=== PATIENT | male | born 1960 | race Caucasian/White ===

== ENCOUNTER 2022-05-03 09:16 | Emergency (ER) | payer MEDICARE, OTHER ==
[~2022-05-03] VITALS: Ht 152.4 cm; Wt 64.5 kg
[2022-05-03] MEDS ORDERED: HYDROCODON-ACE1 EA10 PO (15:19)
[2022-05-03] MEDS ORDERED: ONDANSETRON ODT8 MG PO (15:19)
== END 2022-05-03 16:00 | disposition home or self-care (01) ==
LOC: ED 09:16 → EDSEX 09:17 → ED 09:17
DX: R10.10 Upper abdominal pain, unspecified (principal); B20 Human immunodeficiency virus [HIV] disease
CPT/HCPCS: 36415; 71045; 74177; 80053; 81001; 83690; 85025; 96361; 96375; 99284-25; J1170; J1885; J2405; J7030; Q9967

== ENCOUNTER 2022-05-05 10:33 | Emergency (ER) | payer MEDICARE, OTHER ==
[~2022-05-05] VITALS: Ht 170.2 cm; Wt 65.4 kg
[~2022-05-05 10:33] MED LIST: HYDROCODON-ACE1 EA10 PO; ONDANSETRON ODT8 MG PO
--- OUTSIDE RECORDS SUMMARY | 2022-05-05 10:40 | XMS ---
PreManage Notification: MANUEL HO Security Emergency Technician Events No recent Security Events currently on file CRITERIA MET - [facility] - 2 Visits in 30 Days CARE PROVIDERS MARI GIBSON Physician Medical Detailist: Medical Current PHONE: Unknown Shila has no Care Guidelines for this patient. E.Rolando VISIT COUNT (12 MO.) 2 [facility] TOTAL 2 NOTE: Visits indicate total known visits. ED/UCC VISIT TRACKING (12 MO.) 05/05/2022 10:34 [facility] [place] TYPE: Emergency COMPLAINT: - R FLANK PAIN 05/03/2022 09:17 [facility] TYPE: Emergency COMPLAINT: - R FLANK PAIN, ABD PAIN, BACK PAIN INPATIENT VISIT TRACKING (12 MO.) No inpatient visits to display in this time frame [email or web address]
[2022-05-05] MEDS ORDERED: BIKTARVY 50-201 EACH PO (13:41)
[2022-05-05] MEDS ORDERED: HYDROCODON-ACE1 EA11 PO (13:41)
== END 2022-05-05 14:00 | disposition home or self-care (01) ==
LOC: ED 10:33
DX: R10.9 Unspecified abdominal pain (principal); B20 Human immunodeficiency virus [HIV] disease
CPT/HCPCS: 36415; 80053; 81001; 83690; 85025; 96374; 96375; 99284-25; J1170; J1885; J2405; J7030

== ENCOUNTER 2022-05-19 09:43 | Inpatient (IN) | payer MEDICARE, OTHER ==
[~2022-05-19] VITALS: Ht 167.6 cm; Wt 65.5 kg
[~2022-05-19 09:43] MED LIST changes: +BIKTARVY 50-201 EACH PO; +HYDROCODON-ACE1 EA11 PO; +PERCOCET 7.5-31 EACH PO
--- OUTSIDE RECORDS SUMMARY | 2022-05-19 09:46 | XMS ---
PreManage Notification: MANUEL HO Security Resawyer Events No recent Security Events currently on file CRITERIA MET - [facility] - 2 Visits in 30 Days CARE PROVIDERS MARI GIBSON Physician Director Of Science: Medical Current PHONE: Unknown Shila has no Care Guidelines for this patient. EMorena VISIT COUNT (12 MO.) 4 [facility] TOTAL 4 NOTE: Visits indicate total known visits. ED/C VISIT TRACKING (12 MO.) 05/19/2022 09:44 [facility] TYPE: Emergency COMPLAINT: - ABD/FLANK PAIN 05/09/2022 08:42 [facility] TYPE: Emergency COMPLAINT: - ABD PAIN,INCREASED BLOOD PRESSURE DIAGNOSES: - Localized enlarged lymph nodes - Right upper quadrant abdominal tenderness - Epigastric pain 05/05/2022 10:34 [facility] TYPE: Emergency COMPLAINT: - R FLANK PAIN DIAGNOSES: - Unspecified abdominal pain 05/03/2022 09:17 [facility] TYPE: Emergency COMPLAINT: - R FLANK PAIN, ABD PAIN, BACK PAIN DIAGNOSES: - Upper abdominal pain, unspecified INPATIENT VISIT TRACKING (12 MO.) No inpatient visits to display in this time frame [email or web address]
--- NOTE | 2022-05-19 13:10 | NUR ---
PT TO ROOM VIA STRETCHER, STANDBY ASSIST TO BED, PT APPEARS WEAK WITH AMBULATION, DENIES DIZZINESS. RED, UNOPEN RASH NOTED TO LEFT UPPER ABD AND LEFT MID BACK. PT ORIENTED TO ROOM, CALL LIGHT.
--- NOTE | 2022-05-19 13:28 | NUR ---
PT C/O 3/10 PAIN IN THE AREA OF HIS RASH ON LEFT UPPER ABD, PRN OXYCODONE GIVEN.
--- NOTE | 2022-05-19 15:59 | NUR ---
PT SITTING UP IN CHAIR, CHAIR ALARM IN PLACE. IMPULSIVE. RE-ORIENTED TO CALL LIGHT. PT VERBALIZED UNDERSTANDING. DENIES FURTHER NEEDS AT THIS TIME. CALL LIGHT IN REACH.
--- NOTE | 2022-05-19 16:00 | NUR ---
PT BED ALARM RANG, PT WAS UP AND OUT OF BED WANTING TO GO TO THE CHAIR. PT IS UNSTEADY & WEAK ON FEET. GOT PT IN CHAIR, FEET ELEVATED, CHAIR ALARM PLACED UNDER HIM AND GIVEN A BLANKET. PT HAS CALL LIGHT NEXT TO HIM.
--- NOTE | 2022-05-19 16:03 | NUR ---
REPORT RECEIVED FROM GAGE WRIGHT. THIS RN ASSUMING CARE OF PT. PT UP TO CHAIR. PT HAS THE HICCUPS. PT DECLINES INTERVENTIONS FOR HICCUPS. PT REPORTS 3/10 PAIN IN ABDOMEN AND FLANK. PT REQUESTS ADDITIONAL PAIN MEDICATION. SEE MAR FOR MEDICATION GIVEN. PT TALKS WITH FRIEND ON THE PHONE. APPEARS DISSCONNECTED TO EVENTS HAPPENING ARROUND HIM, FOR EXAMPLE. PT SETS PHONE DOWN AND FORGETS THAT HE WAS TALKING TO HIS FRIEND. FRIEND REMAINS ON THE LINE. PT FORGETS ABOUT ITEMS HE HAS ASKED FOR. CHARGE NURSE NOTIFIED, PT MOVED TO ROOM CLOSER TO THE NURSES STATION FOR SAFETY. PT REMAINS UP TO CHAIR. CHAIR ALARM ON. WARM BLANKETS PROVIDED. CALL LIGHT WITHIN REACH.
--- NOTE | 2022-05-19 16:54 | NUR ---
PT ASSESSMENT: PT REMAINS UP TO CHAIR. PT REPORTS 3/10 PAIN AND REQUESTS ADDITIONAL PAIN MEDICATION. PT ADVISED THAT NEXT ORAL OXYCODONE IS DUE IN 30 MINUTES, PT STATES HE WOULD LIKE TO WAIT UNTIL THAT TIME TO TAKE PAIN MEDICATION. SEE MAR FOR MEDICATION GIVEN. PT VERY LETHARGIC, MOVING MINMALLY. PT OREINTED TO ALL BUT DATE AND EVENTS. PT STATES IT IS "AUGUST" AND THAT HE IS AT THE HOSPITAL FOR "PAIN" PT UNABLE TO RECALL CONVERSATIONS WITH DOCTORS TODAY. PT FLINCHES WITH LIGHT FROM OUTSIDE. HICCUPS HAVE RESOLVED. LUNG SOUNDS CLEAR. HEART TONES REGULAR. BOWEL TONES ACTIVE. PT CONTINUES TO REPORT POOR APPITITE. PT IMPULSIVE AT TIMES AND UNSTEADY ON FEET. REDDENED RASH WITH BLISTES NOTED ON LEFT UPPER ABDOMEN AND BACK/FANK. NO OOZINE OR LEAKING NOTED. CHAIR ALARM ON FOR SAFETY. NO ADDITIONAL REQUESTS OR COMPLAINTS. CALL LIGHT WITHIN REACH.
--- NOTE | 2022-05-19 16:56 | NUR ---
PT DID USE CALL LIGHT FOR ASSISTANCE FOR THE BATHROOM. i ADVISED HIM TO USE THE URINAL INSTEAD BECAUSE HE WAS NOT STEADY ON HIS FEET. PT AGREED & TOOK THE URINAL BUT HE TRIED TO WALK TOWARDS THE BATHROOM & I HAD TO TELL HIM TO STAND STILL AND USE THE URINAL, HE SAID "OK" IF HE UNDERSTOOD BUT HE THEN TRIED TO WALK TOWARDS THE BATHROOM AGAIN. I INSTEAD BROUGHT OUT THE COMMODE AND ASKED HIM TO MAKE SURE HE PULLS HIS PANTS DOWN BUT HE SAT WITH HIS PANTS ON, i TOLD HIM AGAIN TO REMOVE HIS PANTS AND HE STOOD AND THEN SAT AGAIN WITH HIS BOTTOMS ON. THE THRID TIME INSTRUCTING HIM HE THEN REMOVED HIS BOTTOMS AND SAT ON THE COMMODE, HOWEVER WHEN HE WAS DONE HE SAID HE FELT BETTER BUT HE DID NOT HAVE A VOID. PT THEN GOT BACK INTO CHAIR WITH LEGS ELEVATED AND CHAIR ALARM ON AND URINAL NEXT TO HIM. CALL LIGHT IS ATTATCHED TO BLANKET ON HIS LAP.
--- NOTE | 2022-05-19 17:10 | NUR ---
PT ARRIVED THIS SHIFT FOR IRAIS. PT UP WITH 1 PERSON STAND BY ASSIST, PT IMPULSIVE AND CONFUSED AT TIMES. PT TOLERATING REGULAR DIET, MINMAL INTAKE. IV FLUIDS FOR HYDRATION. PT REPORTS 2-3/10 PAIN IN LEFT FLANK AND ABDOMEN, SHINGLES RASH PRESENT WITH CLOSED LESIONS. PRN PAIN MEDICATION GIVEN. PT INCONSISTANTLY ORIENTED THOUGHOUT SHIFT, MOVED CLOSER TO NURSES STATION FOR SAFETY. PT VOIDING QUANTITY SUFFICENT, ALTHOUGH UNMEASURED. PT DOES NOT USE CALL LIGHT CONSISTANTLY. BED/CHAIR ALARM FOR SAFETY.
[2022-05-19] MEDS ORDERED: PERCOCET 7.5-31 EACH PO (17:17)
--- NOTE | 2022-05-19 17:24 | NUR ---
PAIN MEDICAITON DUE/GIVEN. PT REPORTS 3/10 PAIN IN LEFT ABDOMEN/FLANK. DINNER DELIVERED TO PT. PT REJECT DINNER. ENSURE OFFERED. PT AGREES TO TRY ENSURE. STRAWBERRY ENSURE MILKSHAKE PROVIDED. PT DENIES ADDITIONAL REQUESTS OR COMPLAINTS. CALL LIGHT WITHIN REACH. CHAIR ALARM ON.
--- NOTE | 2022-05-19 18:02 | NUR ---
PT CALL LIGHT ON. PT BACK IN BED AND REQUESTS TO GET UP TO CHAIR. STAND BY ASSIST UP TO CHAIR. PT CONTINUES TO REPORT 3/10 PAIN IN ABDOMENT. WARM BLANKETS AND HEAT PACK PROVIDED, PT STATE "OH THAT FEELS BETTER." PT DENIES ADDITIONAL REQUESTS OR COMPLAINTS. CALL LIGHT WITHIN REACH. CHAIR ALARM ON. PT TAKING SMALL SIPS ON STRAWBERRY ENSURE MILKSHAKE.
--- NOTE | 2022-05-19 18:38 | NUR ---
THIS RN TO ROOM TO CHECK ON PT. PT REMAINS UP TO CHAIR. NEW IV FLUID BAG HUNG. PT REPORTS 3/10 ONGOING PAIN IN ABDOMEN. PT DENIES NEED FOR ADDITONAL PAIN INTERVENTIONS AT THIS TIME. PT CONTINUES TO USE HEAT PACK TO ABDOMEN. PT RPEORS HE JUST RECENTLY MOVED TO [facility] FROM [place] "BECAUSE OF THE CRIME." PT RPEORTS HE HAD "BEEN GETTING MOTEL ROOMS FROM [facility]" PT UNABLE (OR UNWILLING?) TO ELABORATE ANY MORE REGARDING LIVING SITUATION AND IF NEEDS ARE MET. NO ADDITONAL REQUESTS OR COMPLAINTS AT THIS TIME. CALL LIGHT WITHIN REACH.
--- NOTE | 2022-05-19 19:32 | NUR ---
REPORT RECEIVED FROM CHELI ALMONTE. PT IS CONFUSED TO TIME, PLACE AND SITUATION. ORIENTED TO SELF ONLY. BED ALARM IS ON. CALL LIGHT IN REACH.
--- NOTE | 2022-05-19 20:42 | NUR ---
IN TO ASSIST PT WITH TOILETING, SBA-1PA FWW, BACK TO BED, ALARM IS SET, PT ASKING ABOUT GETTING A PAIN PILL, RN INFORMED, NO FURTHER NEEDS AT THIS TIME
--- NOTE | 2022-05-19 21:55 | NUR ---
Patient continually attempting to escape bed. Claims sitting up helps abd pain. Bed alarm in place. Patient very forgetful. No complaints other than abd pain.
--- NOTE | 2022-05-20 00:30 | NUR ---
PT GETTING UP TO THE TOILET, SBA-1PA WITH IV POLE
--- NOTE | 2022-05-20 01:56 | NUR ---
Patient in bed. Restless. Will sleep for about ten minutes at a time before waking and setting off bed alarm. In bed sleeping at this time. Bed alarm in place.
--- NOTE | 2022-05-20 04:10 | NUR ---
PT CALLEDS, ASSISTG ED WITH TOILETING, BACK TO BED, NO FURTHER NEEDS, BED ALARM SET
--- NOTE | 2022-05-20 04:39 | NUR ---
Patient has had very little sleep throughout shift. Constantly getting up and setting off bed alarm. Oriented to self only. Does not use call light. Very forgetful. Easily redirected. Lung sounds clear bilat. On RA. Respirs even, unlabored. Infusing fluids at rate of 200. Voiding appropriately. Heart sounds regular. Bowel sounds active. Rash on LUQ and back are scabbed over. Patient complains of pain at these sites despite pain medications. Patient continuously repositions self. Bed alarm remains in place. Call light within reach.
--- NOTE | 2022-05-20 05:15 | NUR ---
PT CALLED, ASSISTED TO TOILET, BACK TO BED, VS DONE, LAB ENTERS RM, BED ALARM IS IN PLACE
--- NOTE | 2022-05-20 05:53 | NUR ---
call received from Dedra sheridan and reported critical calcium of 13.1. result trending down, md not notified as calcium trending in correct direction. primary rn kimmie made aware.
--- NOTE | 2022-05-20 07:04 | NUR ---
REPORT RECEIVED FROM GAGE SALAS. PT RESTING IN BED WITH EYES CLOSED, HEAD OF BED ELEVATED TO 30 DEGREES. RESPIRATIONS EVEN AND UNLABORED. BED RAILS UP. CALL LIGHT WITHIN REACH. PT ALLOWED TO REST.
--- NOTE | 2022-05-20 08:15 | NUR ---
PATIENT UP IN CHAIR. AM CARE COMPLETED. CHAIR ALARM ON. NO OTHER NEEDS AT THIS TIME CALL LIGHT WITHIN REACH.
--- NOTE | 2022-05-20 08:25 | NUR ---
MORNING ASSESSMETN AND MEDICATION DUE. PT UP TO CHAIR, RESTING WITH EYES CLOSED, RESPIRATIONS EVEN AND UNLABORED, RR OF 16. PT AWAKENS TO VOICE. PT REPORTS 2/10 PAIN IN BILATERAL FLANKS AND LEFT ABDOMEN. PT TENDER TO TOUCH ON LEFT FLANK. PT REQUESTS PAIN MEDICATION. SEE MAR FOR MEDICATION GIVEN. PT ORIENTED TO ALL AT THIS TIME, OCCATIONALLY FORGETFUL. PT REPORTS NUMBNESS IN FEET THIS MORNING. PT REPORTS FEET HAVE BEEN NUMB "FOR A WHILE." LUNG SOUNDS CLEAR. HEART TONES REGULAR. BOWEL TONES HYPOACTIVE. UNKNOWN LAST BOWEL MOVEMENT. BOWEL MEDICATIONS ORDERED GIVEN PTS USE OF PAIN MEDICATIONS. PTS POOR APPITITE CONTINUES. SHINGLES RASH UNCHANGED. PT DECLIENS BREAKFAST. ENSURE PROVIDED. PT CONTINUES RESTING IN CHAIR. NO ADDITIONAL REQUESTS OR COMPLAINTS. WARM BLANKETS PROVIDED. CALL LIGHT WITHIN REACH. CHAIR ALARM ON.
--- NOTE | 2022-05-20 09:42 | NUR ---
THIS RN TO ROOM TO CHECK ON PT. PT VISITING WITH CASE MANAGMENT. PT REPORTS 2/10 PAIN IN LEFT FLANK AND LEFT ABDOMEN. PT DECLINES ENSURE OR OTHER BREAKFAST FOODS/DRINKS. PT REPORTS MILD NAUSEA, SEE MAR FOR MEDICATION GIVEN. NO ADDITONAL NEEDS AT THIS TIME. PT REMAINS UP TO CHAIR. CALL LIGHT WITHIN REACH. CHAIR ALARM ON.
--- NOTE | 2022-05-20 10:17 | NUR ---
PATIENT UP IN CHAIR AFTER MEAL. VITALS AND I/O'S COMPLETED. CALL LIGHT WITHIN REACH.
--- NOTE | 2022-05-20 10:30 | NUR ---
Spoke with pt and he is intermittently confused. Stating he is at a motel. We discussed he is currently in the hospital and he states, "oh thats right". He is then able to tell me he currently is working with [employer] and they are paying for he and his SO to stay in a motel as they are homeless. [place], he does not use any DME. He states he is disabled, but is unsure why. He gets SSI. Pt states he has been very painful for the last 2weeks. He again has some confusion while talking. He does states his SO is Edgardo. Pt wants to return to the motel on [place]. He will need a care ride.
--- NOTE | 2022-05-20 10:59 | NUR ---
HOURLY ROUNDING: THIS RN TO ROOM TO CHECK ON PT. PT REMAINS UP TO CHAIR. TALKING ON THE PHONE. PT REPORTS PAIN IS "ALL RIGHT." REPORTS NAUSEA CONTINUES. PT NOW HAS HICCUPS. pT DECLINES COOL CLOTH, ICE OR HEAT PACK. PT REPORTS HE HAS NO REQUESTS AT THIS TIME. CALL LIGHT WITHIN REACH. CHAIR ALARM ON.
--- NOTE | 2022-05-20 11:45 | NUR ---
This rn to room WITH DR. VASQUES FOR ROUNDS. PT REMAINS UP TO CHAIR. PT UPDATED ON PLAN OF CARE. ASSESSMENT, PAIN AND PT CONTIDITION REVIEWED WITH DR. VASQUES. NEW ORDERS PLACED. NO ADDITIONAL NEEDS AT THIS TIME. PT REMAINS UP TO CHAIR. CALL LIGHT WIHTIN REACH. CHAIR ALARM ON.
--- NOTE | 2022-05-20 11:56 | NUR ---
NEW ORDERS FROM MD. PT REMAINS UP TO CHAIR. PT DECLINES LUNCH WHEN IT IS DELIVERED. STRAWBERRY ENSURE PROVIDED INSTEADY. PT AGREES TO TRY SOME JELLOW WELL. MEDICATIONS GIVEN. PT DENEIS SORE THROAT. PT CONTINUES TO REPORT ABDOMINAL PAIN AND PAIN IN FLANK AREAS AT /10. PT CONTINUES TO REPORT NASUEA. PT UNABLE TO CLARIFY IF PAIN OR NAUSEA IS WORSE. PT STATES "I THOUGHT THEY WERE ONE AND THE SAME." MD AWARE OF COMPLAINTS. NO ADDITIONAL NEEDS AT THIS TIME. CALL LIGHT WITHIN REACH. CHAIR ALARM ON.
--- NOTE | 2022-05-20 12:11 | NUR ---
DR. VASQUES UPDATED REGARDING PTS NASUEA/PAIN. NEW MEDICATIONS ORDERED, SEE MAR FOR MEDICATION GIVEN. NO ADDITIONAL NEEDS. CALL LIGHT WITHIN REACH. CHAIR ALARM ON.
--- NOTE | 2022-05-20 12:19 | NUR ---
IMAGING TO ROOM TO CASH APPLICATIONS SPECIALIST PT. PT SALINE LOCKED FOR TRANSFER TO IMAGING DEPARTMENT. PT TRANSFERES SELF TO WHEECHAIR WITH 1 PERSON ASSIST. NO ADDITIONAL NEEDS.
--- NOTE | 2022-05-20 13:01 | NUR ---
PT RETURNED FROM IMAGING. PT TRANSFERS SELF TO CHAIR WITH 1 PERSON ASSIST. PT REPORTS NAUSEA IS IMPROVING. PT DENIES NEED FOR ADDITIONAL MEDICATINO AT THIS TIME. NEW IV FLUIDS HUNG. PT EDUCATION DONE REGARDING MEAUSREING VOIDS. URINAL AT BEDSIDE, HAT IN TOILET. PT RESTING IN CHAIR WITH EYES CLOSED. NO ADDITIONAL REQUESTS OR COMPLAINTS. CALL LIGHT WITHIN REACH. CHAIR ALARM ON.
--- NOTE | 2022-05-20 13:15 | NUR ---
PT RETURNED FROM IMAGING. PT UP TO RESTROOM WITH 1 PERSON ASSIST FROM LATHE SCALPER OPERATOR TO VOID AND THEN UP TO CHAIR. PT REPORTS HUNGER, LUNCH PROVIDED. PT DENIES ADDITIONAL REQUESTS OR COMPLAINTS. PT REMAINS AT 90-96% ON 4L O2 BY NC. NO ADDITIONAL NEEDS AT THIS TIME. CALL LIGHT WITHIN REACH.
--- NOTE | 2022-05-20 13:47 | NUR ---
PATIENT IN CHAIR AFTER USING RESTROOM. VITALS AND I/O'S COMPLETED. CHAIR ALARM ON. NO OTHER NEEDS AT THIS TIME, CALL LIGHT WITHIN REACH.
--- NOTE | 2022-05-20 13:51 | NUR ---
AFTERNOON ASSESSMENT DUE. PT REMAINS UP TO CHAIR. PT ASKED IF HIS NAUSEA HAS IMPROVED AND PT STATES "WELL, I DONT' KNOW. NOONE HAS COME TO CHECK ON IT." WHEN ASKED IF HE FEELS SICK TO HIS STOMACH, PT STATES "ONLY A LITTLE BIT." PT REPORST 3/10 PAIN IN LEFT ABDOMEN AND LEFT FLANK. BOTH AREAS TENDER TO TOUCH. PT DENIES NEED FOR MEDICATION AT THIS TIME. PT ORIENTED TO SELF AND PLACE BUT DISORINTED TO DATE AND SITUATION. 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 PT BEGINS DRINKING APPLE JUCIE AND GETS HICCUPS AGAIN. PT DECLIENS OFFERS OF OTHER FOOD AND FLUID. 1 PERSON ASSIST UP TO RESTROOM. PT IMPUSLIVE AND GRABING ON TO ITEMS (INCLUDING SHOWER CURTAIN) TO HOLD ON TO. WALKER IN USE BUT PT DOES NOT SEEM TO UNDERSTAND FUCNTION OF WALKER. PT VOIDS 200ML CLEAR YELLOW URINE. DEPENDS WET, CHANGED, SHAWNA CARE DONE. 1 PERSON ASSIST BACK TO CHAIR. LUNG SOUNDS CLEAR. OCCATONAL NONPRODUCTIVE COUGH HEARD. PT TOELRATING ROOM AIR WITH OXGYEN SATUATIONS ABOVE 94%. HEAR TONES REGULAR. BOWEL TONES COTINUES TO BE HYPOACTIVE. SHINGLES RASH UNCHANGED. BRUISE NOTED TO LEFT AC, LARGE IN SIZE, LIKELY FROM RECENT LAB DRAW. PT REMAINS UP TO CHAIR. PT DENIES ADDITONAL REQUESTS OR COMPLAINTS. CALL LIGHT WIcoRankIN REACH. CHAIR ALARM ON.
--- NOTE | 2022-05-20 14:00 | NUR ---
Rehana from [facility] stopped by my office to check in. She has been in to see Saray. Discussed needs, they will be closed for the holiday weekend. She states pt does not have funds for rx, if he dcs over the weekend. Let her know I will notify the Dr. At this time, I am unsure when pt will dc. They will be back in the office on Monday. They will pay for pts meds it he has new medication on discharge.
--- NOTE | 2022-05-20 14:33 | NUR ---
PTS SIGNIFICANT OTHER AND SYSTEM TRAINER ARRIVED TO VISIT WITH PT. PT STATES TO UPDATE BOTH OF THESE INDIVIDUALS ON HIS STATUS AND PLAN OF CARE. UPDATES GIVEN. PTS SIGNIFICANT OTHER CONCERNED ABOUT PT NOT EATING, REPORTS PT WAS NOT EATING AT HOME EITHER. PT REPORTS "IT'S PSYCOLOGICAL." PT ASKED TO CLARIFY AND STATES "THE FOOD MIGHT BE CONTAMINATED." PTS SIGNIFICANT OTHER ASKED TO BRAINSTORM WITH PT FOODS HE MIGHT BE WILLING TO EAT OR HAVE DELIVERED FROM OUTSIDE THE HOSTPITAL THAT HE WOULD FEEL WOUD BE SAFE FOR HIM. PT REPORTS "i DON'T THINK THERE IS ANYTHING." PTS SIGNIFICANT OTHER AND SYSTEM TRAINER VERBALIZE UNDERSTANDING OF PLAN OF CARE AND STATE THEIR QUESITONS HAVE BEEN ANSWERED. PT ASSISTED WITH REPOSITIONING IN CHAIR. NO ADDITIONAL REQUESTS OR COMPLAINTS. CALL LIGHT Tu[place]ool REACH. CHAIR ALARM ON.
--- NOTE | 2022-05-20 14:58 | NUR ---
Admin Oxycodone 5mg po and tylenol 500mg po for reports of 5/10 abdominal pain.
--- NOTE | 2022-05-20 15:00 | NUR ---
Texted Dr. Blount and updated. He does not feel pt will dc before Monday.
--- NOTE | 2022-05-20 15:45 | NUR ---
HOURLY ROUNDING: THIS RN TO ROOM TO CHECK ON PT. PT REMAINS UP TO CHAIR. RESTING WITH EYES CLOSED, RESPRIATIONS EVEN AND UNLABORED, RR OF 16. CALL LIGHT WITHIN REACH. CHAIR ALARM ON. PT ALLOWED TO REST.
--- NOTE | 2022-05-20 16:40 | NUR ---
AFTERNOON MEDICATION DUE. THIS RN TO ROOM. PT RESTING IN CHAIR WITH EYES CLOSED, SLOUCHED OVER IN CHAIR. PT AWAKENS TO VOICE AND TOUCH. PT UNABLE TO RATE PAIN STATES "I DONT' KNOW" WHEN ASKED ABOUT PAIN. PT CONFIRMS THAT HE HAS PAIN BUT IS NOT ABLE TO GIVEN A NUMBER ON THE 0-10 SCALE. FLACC SCORE OF 2/10 FOR REPORT OF PAIN AND CONSOLABILITY. PT DENIES NAUSEA. PT IS WILLING TO TRY ONE BITE OF JELLO BUT OTHER VENCES CONTINEUS TO REJECT FOOD. MEDICAITON GIVEN (SEE MAR). SWALLOWS PILLS AND WATER WITHOUT ISSUE. NO ADDITIONAL REQUESTS OR COMPLAINTS. CALL LIGHT WITHIN REACH. CHAIR ALARM ON.
--- NOTE | 2022-05-20 17:15 | NUR ---
THIS RN TO ROOM TO DELIVER DINNER. PT RESTING IN CHAIR WITH EYES CLOSED. DINNER AT BEDSIDE. PT ALLOWED TO REST. CALL LIGHT WITHIN REACH. CHAIR ALARM ON.
--- NOTE | 2022-05-20 17:26 | NUR ---
PT HERE FOR IRAIS. PT UP TO CHAIR AND RESTROOM WITH 1 PERSON ASSIST AND FWW THIS SHIFT. PT REMAINS IN CHAIR FOR MUCH OF SHIFT. REGULAR DIET MEALS AND ENSURE PROVIDED, PT EATING ONLY A FEW BITES THOUGHOUT SHIFT. PT CONTINUES TO BE INCONSISTANTLY OREINTED AND MAKING COMMENTS THAT ARE OUT OF PLACE THIS SHIFT. HEAD CT PERFORMED. HEART TONES REGULAR. LUNG SOUNDS REMAIN CLEAR ALTHOUGH NON PRODUCTIVE COUGH NOTED THIS SHIFT. SHINGLES RASH UNCHANGED. PT CONTINUES TO HAVE LEFT SIDED ABDOMINAL AND FLANK PAIN, TENDER TO TOUCH. PRN PAIN MEDICATIONS GIVEN. IV FLUIDS CONTINUE. PT VOIDING QUANTITY SUFFICIENT. PT DOES NOT USE CALL LIGHT CONSISTANTLY. CHAIR/BED ALARM FOR SAFETY.
--- NOTE | 2022-05-20 18:32 | NUR ---
CHAIR ALARM SOUNDING. PT UP IN ROOM, WONDERING. PT REPORTS HE NEEDS TO USE THE RESTROOM. PT GUIDED TO RESTROOM WITH ONE PERSON ASSIST AN FRONT WHEEL WALKER. DEPENDS SATURATED. NO ADDITIONAL URINE VOIDED. SHAWNA CARE DONE. DEPENDS CHANGED. REDNESS NOTED TO GLUTEA AREA, BARRIER CREAM APPLIED. 1 PERSON ASSIST BACK TO BED, PT HAS TROUBLE FINDING THE BED AND NEEDS FREQUENT REDIRECTION. PT ASSISTED INTO BED. HEAD OF BED ELEVATED TO 32 DEGREES. PT DECLINES DINNER, SOUP, ENSURE AND OTEHR ITEMS OFFERED. NEW IV FLUID BAG HUNG. PT DENIES ADDITIONAL REQUESTS OR COMPLAINTS. CALL LIGHT WITHIN REACH. BED RAILS UP. BED ALARM ON.
--- NOTE | 2022-05-20 20:00 | NUR ---
Patient sleeping in bed. Bed alarm in place. Call light within reach.
--- NOTE | 2022-05-20 21:00 | NUR ---
BED ALARM GOING OFF, pt UP SBA WITH FWW. SOMEWHAT UNSTEADY ON FEET AND CAN BE IMPULSIVE. pt VOIDED APPROX 300MLS AND BACK IN BED WITH BED ALARM ON FOR SAFETY. pt IN VIEW OF RN STATION AND CALL LIGHT IN REACH.
--- NOTE | 2022-05-20 22:10 | NUR ---
IN TO ASSIST PT TO THE TOILET, SBA WITH IV POLE, BACK TO BED, NO FURTHER NEEDS AT THIS TIME
--- NOTE | 2022-05-20 22:54 | NUR ---
CALL LIGHT ANSWERED, pt VERBALIZES NEED TO VOID. pt WAITED FOR CLINICAL RESEARCH DIRECTOR TO ENTER ROOM, SBA WITH FWW TO BATHROOM. REMAINS SOMEWHAT UNSTEADY AND REQUIRES PROMPTING AT TIMES. pt INCONTINENT OF URINE, CLEAN ATTENDS IN PLACE AND pt BACK IN BED AND BED ALARM ON. pt PRAISED FOR USING CALL LIGHT, NO FURTHER NEEDS. CALL LIGHT IN REACH.
--- NOTE | 2022-05-20 23:33 | NUR ---
PT USED HIS CALL LIGHT TO ASK FOR THE BATHROOM. ASSISTED UP TOT HE BATHRROM, SBA AND FWW. PT VOIDED AND WAS INCONTINENT OF URINE. CHANGED BRIEF. BACK TO BED. BED ALARM IS ON.
--- NOTE | 2022-05-21 02:10 | NUR ---
PT SET OFF BED ALARM GETTING UP TO THE BATHROOM. HE WAS INCONTINENT OF URINE. BRIEF WAS CHANGED. ASSISTED BACK TO BED.
--- NOTE | 2022-05-21 02:30 | NUR ---
Patient sleeping in bed. Egg crate on mattress. Bed alarm in place. Call light within reach.
--- NOTE | 2022-05-21 04:15 | NUR ---
IN ASSIST PT TO THE TOILET, BACK TO BED, NO FURTHER NEEDS AT THIS TIME
--- NOTE | 2022-05-21 04:49 | NUR ---
Uneventful shift. Patient has gotten much more rest this shift. Has slept majority of shift. Pain adequately controlled w/PRN oxycodone and tylenol. Still very confused. Occasionally uses call light, but mostly jumps to side of bed. Lung sounds clear. Respirs even, unlabored. HR sounds reg. Infusing fluids at rate of 200. Bowel sounds hypo. Has not eaten over shift. Small amount of fluid intake. Has been mostly incontinent of urine. Ambulates w/assist of 1. Bed alarm remains in place. Call light within reach.
--- NOTE | 2022-05-21 07:08 | NUR ---
REPORT RECEIVED FROM GAGE SALAS. PT SITTING UP IN BED, RESTLESS. PT REPORTS 3/10 PAIN IN LEFT ABDOMEN AND FLANK. PT REPORTS NEED TO USE THE RESTROOM. 1 PERSON ASSIST WITH FWW UP TO RESTROOM, ASSIST FROM NUT THREADER. PT REQUESTS STRABERRY YOGURT FOR BREAKFAST, ORDER PLACED. PT DENIES ADDITIONAL REQUESTS OR COMPLAINTS. CALL LIGHT WITHIN REACH. BED RAILS UP.
--- NOTE | 2022-05-21 08:08 | NUR ---
MORNING ASSESSMENT AND MEDICAITON DUE. PT RESTING IN BED ON LEFT SIDE WITH EYES CLOSED. PT AWAKENS TO MOVEMENT IN THE ROOM. PT OREINTED TO SELF, PLACE, AND SOME EVENTS. PT INTERMITTANTLY CONFUSED AND DISORIENTED. PT DISORINTED TO DATE/TIME, AND SOME EVENTS. PT FOLLOWS MOST DIRECTIONS, NEED FREQUENT REDIRECTIONS. PT DENIES NAUSEA. PT REPORTS 5/10 PAIN AND STATES "IT'S OK RIGHT NOW." PAIN SCALE EDUCATION DONE WITH PT AND PT STATES "WELL A 5 IS BETTER THAN A 3." ADDITIONAL PAIN SCALE EDUCATION DONE AND PT REMAINS UNABLE CLARIFY PAIN RATING. PT DECLINES TYELNOL. PT REPORTS HE IS "COMFORTABLE" AT THIS TIME. STRONG POTATO CHIP SACKING MACHINE OPERATOR AND PLANTAR FLEXION NOTED. GENERALIZED WEAKNESS CONTINUES, PT UNSETADY ON FEET. WHEN ASKED ABOUT A SORE THROAT PT STATES "NO EXACTLY." PT STATES SWALLOWING IS "LIKE I CAN'T." PT UNABLE TO ELABORATE MORE. PT SWALLOWS WATER AND PILLS WITHOUT ANY CHOAKING COUGHING OR THROAT CLEARING. LUNG SOUNDS CLEAR. HEART TONES REGULAR. NO EDEMA NOTED. CMS INTACT. BOWEL TONES REMAIN HYPOACTIVE. ABDOEMN SOFT AND NON DISTENDED. TENDER ON LEFT SIDE. LEFT FLANK TENDER TO TOUCH. POOR APPITITE CONTINUES. SHINGLES RASH UNCHANGED, SCABBED BLISTERS REMAIN. PT DECLINES TIME OUT OF BED AT THIS TIME STATING HE IS "COMFORTABLE" WHERE HE IS. MEDICATIONS GIVEN. PT DENIES ADDITIONAL REQUESTS OR COMPLAINS. CALL LIGHT WITHIN REACH. BED RAILS UP. BED ALARM ON.
--- NOTE | 2022-05-21 08:26 | NUR ---
PT CHANGES HIS MIND AND REQUESTS TO GET UP TO CHAIR. 1 PERSON ASSIST WITH FWW UP TO RESTROOM TO VOID. PT ONCE AGAIN SITS DOWN ON TOILET WITHOUT PULLING DOWN HIS PANTS. ASSISTANCE PROVIDED. MORNING CARES DONE. 1 PERSON ASSIST UP TO CHAIR. BREAKFAST DELIVERED. PT DENIES ADDITONAL REQUESTS OR COMPLAINTS. CALL LIGHT WITHIN REACH. CHAIR ALARM ON.
--- NOTE | 2022-05-21 09:42 | NUR ---
THIS RN TO ROOM TO CHECK ON PT. PT RESTING IN RECLINER WITH EYES CLOSED. RESPRIATIONS EVEN AND UNLABORED. CALL LIGHT WITHIN REACH. PT ALLOWED TO REST.
--- NOTE | 2022-05-21 09:56 | NUR ---
CHAIR ALARM SOUNDING. PT UP IN ROOM WONDERING. THIS RN TO ROOM. PT STATES HE IS TYRING USE THE RESTROOM. PT GUIDED TO RESTROOM. DEPENDS SATURATED. SHAWNA CARE DONE, DEPENDS CHANGD. DO NOT VOID ADDITIONAL URINE AT THIS TIME. STAND BY ASSIST BACK TO BED WITH FWW. VITALS SIGNS STABLE. PT ENCORUAGED TO DRINK PO FLUIDS. PT DRINKS A FEW SIPS AND HAS HICCUPS AGAIN. PT DECLINES [place] MEDICATION. NO ADDITIONAL REQUESTS OR COMPLAINTS. CALL LIGHT WITHIN REACH. BED RAILS UP. BED ALARM ON.
--- NOTE | 2022-05-21 10:52 | NUR ---
HOURLY ROUNDS: PT RESTING IN BED WITH EYES CLOSED. PT AWAKENS TO MOVEMENT IN THE ROOM. PT REPORTS "NO PAIN" AT THIS TIME. PT DENIES NEED FOR PAIN MEDICATION. PT DENIES NAUSE. PT RESTLESS AND FIGITING IN BED. PT DENIES ADDITIONAL REQUESTS OR COMPLAINTS. CALL LIGHT WIHTIN REACH. BED RAILS UP. BED ALARM ON.
--- NOTE | 2022-05-21 11:31 | NUR ---
PT CALL LIGHT ON. PT SIGNIFICANT OTHER, SANDRITA, ARRIVED AND PT REQUESTS "A ROOM FOR HIM TOO." EXTENSIVE CONVERSATION HELD WITH PT TO CLARIFY WHAT HE NEEDS. PT OREINTD TO PLACE AND EVENTUALLY COMMUNICATES THAT HE WOULD LIKE TO GET UP TO THE CHAIR TO VISIT WITH SANDRITA. STAND BY ASSIST WITH FWW UP TO CHAIR. PT DENIES PAIN. SANDRITA BROUGHT CANTALOPE WHICH PT WOULD LIKE TO EAT. PT EATS A BITE AND TAKES CONSIDERABLE TIME TO SWALLOW FOOD. PT REGURGITATES FOOD AND TRIES AGAIN WITH WATER. HICCUPS START AGAIN. PT REPORTS THE FOOD "JUST WONT GO DOWN." PT VISITING WITH SANDRITA, DENIES ADDITIOANL REQUESTS OR COMPLAINTS. CALL LIGHT WITHIN REACH. CHAIR ALARM ON.
--- NOTE | 2022-05-21 11:54 | NUR ---
PUMP ALARMING, INFUSION COMPLETE. NEW IV FLUID BAG HUNG. PT CONTINUES VISITING WITH SANDRITA, HICCUPS CONTINUE PT IS TRYING TO EAT FRUIT. PT DENIES ADDITIONAL REQUESTS OR COMPLAINTS. CALL LIGHT HAN DON. BED RAILS UP.
--- NOTE | 2022-05-21 12:12 | NUR ---
CHAIR ALARM SOUNDING. PT UP OUT OF CHAIR, WONDERING AGAIN, AND TANGLED IN IV LINE. SANDRITA AT [facility], NOT ASSISTING PT. THIS RN TO ROOM. PT UNTANGLED AND GUIDED TO THE RESTROOM. DEPENDS SATURATED. PT VOIDS AND ADDITIONAL 150ML CLEAR YELLOW URINE. SHAWNA CARE DONE. DEPENDS CHANGED. STAND BY ASSIST BACK TO CHAIR. PT REPORTS PAIN BUT IS UNABLE TO RATE PAIN IN ABDOMEN AND LEFT FLANK FLACC SCORE OF 5/10. SEE MAR FOR MEDICATION GIVEN. SANDRITA TRYING TO GET PT TO EAT FRUIT AND DRINK ENSURE. PT DECLINES LUNCH. NO ADDITIONAL NEEDS AT THIS TIME. CALL LIGHT WITHIN REACH. CHAIR ALARM ON.
--- NOTE | 2022-05-21 13:02 | NUR ---
THIS RN TO ROOM TO CHECK ON PT. PT RESTING IN CHAIR WITH EYES CLOSED, RESPIRATIONS EVEN AND UNLABORED. SIGNIFICANT OTHER NO LONGER AT BEDSIDE. PT ALLOWED TO REST. CALL LIGHT WIHTIN REACH. CHAIR ALARM ON.
--- NOTE | 2022-05-21 13:48 | NUR ---
AFTERNOON ASSESSMENT DUE. PT UP TO CHAIR, RESTING WITH EYES CLOSED. PT OPENS EYES TO VOICE AND MOVEMENT IN THE ROOM. PT REPORTS HE WOULD LIKE TO GET BACK TO BED TO REST. PT REPORTS PAIN BUT IS UNABLE TO QUANTIFY OR QUALIFY PAIN AT THIS TIME. PT POINTS TO CENTRAL BACK WHEN ASKED ABOUT PAIN. FLACC SCORE OF 1/10 PT MOVES EASILY AND QUICKLY FALLS BACK TO SLEEP ONCE IN BED. STAND BY ASSIST WITH FWW BACK TO BED. PT DISORIENTED TO PLACE, EVENTS, DATE AND SURROUNDINGS. WHEN ASKED WHY HE IS IN THE HOSPITAL PT STATES "BECAUSE [facility] IS HERE." WHEN ASKED WHAT TYPE OF BULIDING HE IS IN PT STATES "I DIDN'T KNOW THERE WERE TWO BUILDINGS." MAY OF PTS OTHER SENTENCES AND ANSWERES TO QUESTIONS ARE ALSO OUT OF PLACE. PT NEEDS FREQUENT REDIRECTION. NOTED THAT PT HAS RECENTLY HAD PAIN MEDICATION. LUNG SOUNDS CLEAR. HEART TONES REGULAR. BOWEL TONES HYPOACTIVE, ABDOMEN SOFT AND NON TENDER AT THIS TIME. PT HAS HAD VERY MINIMAL INTAKE TODAY BOTH OF FOOD OR FLUIDS (SEE PREVIOUS NOTES). MULTPLE OPTIONS REMAIN AT BEDSIDE. PT REPORTS HE DOES NOT WANT TO DRINK OR EAT ANYTHING. PT CONTINUES TO HAVE INTERMITTANT INCONTANCE AND URINARY URGENCY. DEPENDS IN PLACE. PT DECLINES BATHROOM USE AT THIS TIME. SHINGLES RASH AND BRUISE TO LEFT AC AND FORARM REMAIN UNCHANGED. PT RESTING WITH EYES CLOSED, RESPIRATIONS EVEN AND UNLABORED. BED RAILS UP. CALL LIGHT WITHIN REACH. BED ALARM ON.
--- NOTE | 2022-05-21 14:29 | NUR ---
DR VASQUES UPDATED ON PT STATUS AND ASSESSMENT. NEW ORDERS IN PLACE. MEDICATION GIVEN ORERED. PT SWALLOWS MEDICATIONS WITH OUT ISSUE. NO ADDITONAL NEEDS AT THIS TIME. PT CONTINUES RESTING IN BED, HEAD OF BED ELEVATED TO 41 DEGREES. CALL LIGHT [employer] REACH. BED ALARM ON.
--- NOTE | 2022-05-21 15:17 | NUR ---
THIS RN TO ROOM TO CHECK ON PT. PT RESTING IN BED WITH EYES CLOSED. HEAD OF BED ELEVATED TO 40 DEGREES. RESPIRATIONS EVEN AND UNLABORED. IV FLUID RATE DECREASED PER MD ORDER. PT ALLOWED TO REST. BED RAILS UP. CALL LIGHT WITHIN REACH. BED ALARM ON.
--- NOTE | 2022-05-21 16:12 | NUR ---
THIS RN TO ROOM TO CHECK ON PT. PT RESTING IN BED. AWAKE BUT CONFUSED. PT FALLS ASLEEP WHILE TRYING TO ANSWER QUESTIONS CONCERNING THE PRESENCE OF PAIN. PT ALLOWED TO CONTINUE RESTING. BOUNDING PULSES NOTED AT CAROTID SITES. TACHYCARDIA (HR 100-110'S) NOTED LISTENDING TO APICAL PULSES, REGULAR RATE. PT NO ADDITIONAL NEEDS AT THIS TIME. CALL LIGHT WITHIN REACH. BED RAILS UP. BED ALARM ON.
--- NOTE | 2022-05-21 16:38 | NUR ---
PT CALL LIGHT ON. PT REQUESTS ASSISTANCE UP TO RESTROOM. 1 PERSON ASSIST WITH FWW UP TO RESTROOM. DEPENDS SATURATED. LINENS WET. PT VOIDS AN ADDTIIOANL 100ML CLEAR YELLOW URINE. SHAWNA CARE DONE. DEPENDS CHANGED. LINENS CHANGED. STAND BY ASSIST BACK TO BED. PT STATES "OH, YEAH, I'M HAVING PAIN." PT REPORTS 6/10 MID BACK PAIN AND REQUESTS PAIN MEDIACTION, SEE MAR FOR MEDICATION GIVEN. PT RETURNS TO RESTING WITH EYES CLOSED IN BED, HEAD OF BED ELEVATED TO 33 DEGERES. BED RAILS UP. CALL LIGHT WITHIN REACH. BED ALARM ON.
--- NOTE | 2022-05-21 18:13 | NUR ---
PT HRE FOR [facility]. PT UP WITH 1 PERSON ASSIST AND FWW THIS HSIFT. PT UNSTEADY ON FEET AND IMPULSIVE. PT NOT EATING OR DRINKING THROUGHOUT SHIFT. PT TAKES A SIP OF WATER/JUCIE FOR MEDICATIONS BUT OTHERWISE DECLINES FOOD OR FLUID. PT REPORTS 2-6/10 PAIN THIS SHIFT, PRN PAIN MEDICATION GIVEN. PT INCONSISTANTLY OREINTED/DISORIENTED THROUGHOUT SHIFT. PT CONTINUES MAKING COMMENTS THAT ARE OUT OF PLACE (SEE RN NOTES). BOWEL TONES HYPO ACTIVE, BOWEL MEDICATIONS GIVEN. PT HAS NOT FINISHED MIRALAX. SHINGLES RASH UNCHANGED. PTS SIGNIFICANT OTHER AT BEDISDE THIS SHIFT. IV FLUID RATE DECREASED. PT VOIDING QUANITTY SUFFICIENT, OFTEN INCONTINANT. PT USES CALL LIGHT INCONSISTANTLY, BED/CHAIR ALARM FOR SAFETY.
--- NOTE | 2022-05-21 18:41 | NUR ---
THIS RN TO ROOM TO CHECK ON PT. PT RESTING WITH EYES CLOSED IN BED, HEAD OF BED ELEVATED TO 20 DEGREES, RESPIRATIONS EVEN AND UNLABORE. BED RAILS UP. CALL LIGHT WITHIN REACH. BED ALAMR ON.
--- NOTE | 2022-05-21 19:19 | NUR ---
TOOK PATIENT TO THE BATHROOM CHANGED HIS ATTEND AND HIS NAOMI ON HIS BED. ASKED PATIENT IF HE WAS HUNGRY AND HE SAID NO. I ALSO ASKED HIM IS HE THIRSTY AND HE SAID NO I ALSO ASKED HIM IF HE WOULD LIKE A DRINK OF HIS ENSURE OR ANYTHING THAT WAS ON HIS SIDE TABLE AND HE SAID NO. BUT HE DID TAKE A SIP OF HIS WATER. I ASKED HIM IF HE WANTED HIS COVERS ON AND HE SAID NO. BED ALARM IS ON. PATIENT IS SLEEPING. PATIENT ALSO IS LITTLE CONFUSED.
--- NOTE | 2022-05-21 19:53 | NUR ---
Patient restless in room. Being assisted to BR at this time. Bed alarm remains in place while in bed. Call light within reach.
--- NOTE | 2022-05-21 20:00 | NUR ---
pt GETTING OUT OF BED. THIS RN TO ASSIST. pt UP TO TOILET, SBA FWW. BACK TO BED. BED ALARM ON. CALL LIGHT WITHIN REACH.
--- NOTE | 2022-05-22 02:00 | NUR ---
Patient just got back to bed from BR. Call light within reach. Bed alarm in place. Denies needs. Remains confused and disoriented.
--- NOTE | 2022-05-22 04:44 | NUR ---
Uneventful shift. Patient remains confused. Does not call appropriately. Lungs clear. On RA. Respirs unlabored. Bowel sounds active. No BM on shift. Ambulates w/assist of 1 and walker. Unsteady gait. Fluids infusing at rate of 125. Incontinent of bladder. Bed alarm in place. Call light within reach.
--- NOTE | 2022-05-22 05:56 | NUR ---
LAB CALLED AT 0555 WITH CRITICAL PLATELET VALUE OF 28 ON THIS PT.
--- NOTE | 2022-05-22 07:08 | NUR ---
REPORT RECEIVED FROM GAGE SALAS. PT RESTING IN BED WITH EYES CLOSED. RESPIRATIONS EVEN AND UNLABORED. BED RAILS UP. BED ALARM ON. CALL LIGHT WITHIN REACH.
--- NOTE | 2022-05-22 08:24 | NUR ---
MORNING ASSESSMENT AND MEDICATION DUE. THIS RN TO ROOM. PT RESTING IN BED, AWAKE AND ALERT. PT REQUESTS TO GET UP TO RESTROOM. PT VERY UNSTEADY ON FEET, SPASTIC LIKE MOVEMENTS, ARMS AND LEGS JERKING, PT HAVING TROUBLE WITH COORDINATION. PT UP TO BEDSIDE COMODE. PT HAS ALREADY HAD INCONTINANT EPISODE AND IS UNABLE TO VOID MORE ON BEDSIDE COMDOE. SHAWNA CARE DONE, DEPENDS CHANGED. 1 PERSON ASSIST FRONT WHEEL WAKER PIVOT BACK TO BED. ATAXIA NOTED. PT HAS TROUBLE LIFTING LEGS OFF THE BED OR TOUCHING THIS RN'S FINGER WITH HIS FINGER. PT HAS TROUBLE TRACKING PEN WITH EYES. PT OREINTED ONLY TO SELF. PT UNABLE TO VERBALIZE WHERE HE IS OR WHY. PT STATES THE YEAR IS "1943." PT CONTINUALLY ASK FOR HIS PHONE DESPITE HIS PHONE BEING IN HIS HAND. PT HAS FOLLOWS SOME DIRECTIONS BUT NOT ALL. PT DENIES PAIN AND DECLINES PAIN MEDICAITON. FLACC SCORE OF 1/10 FOR RESTLESSNESS. IV SITE LEAKING SMALL AMOUNTS NEAR INCERTION SITE, IV OTHERWISE WNL. NOTED THAT PTS PLATELET COUNT IS LOW. NO PETECHIA SEEN OVER SKIN. LARGE BRUISES NOTED TO BILATERAL AC AND FORARMS. LUNG SOUNDS CLEAR. HEART TONES REGULAR. HYPOACTIVE BOWEL TONES HEARD. ABDOMEN TENDER TO TOUCH ON LEFT SIDE. PT IS WILLING TO SWALLOW PILLS BUT OTHERWISE REFUSES PO INTAKE. SHINGLES RASCH SCABED OVER. BRUISES TO BILATERAL AC AND FORARM SITES. PT REAMINS IN BED FOR SAFETY AT THIS TIME. CALL LIGHT WITHIN REACH. BED RAILS UP. BED ALARMON.
--- NOTE | 2022-05-22 08:57 | NUR ---
PATIENT IN BED, AM CARE COMPLETED. NO OTHER NEEDS AT THIS TIME, CALL LIGHT WITHIN REACH.
--- NOTE | 2022-05-22 09:20 | NUR ---
PATIENT IN BED AFTER USING RESTROOM. VITALS AND I/O'S COMPLETED. BED ALARM ON, NO OTHER NEEDS, CALL LIGHT WITHIN REACH.
--- NOTE | 2022-05-22 09:49 | NUR ---
THIS RN TO ROOM TO CHECK ON PT. PT PRESSING RANDOM BUTTONS ON HIS CALL LIGHT. PT STATES HE IS TRYING RAISE THE HEAD OF HIS BED. PT ASSISTED WITH ADJUSTING BED. PT REPORTS PAIN IS "FINE." PT DENIES NEED FOR PAIN MEDICAITON. PT DRIFTS QUICKLY BACK TO SLEEP. BED RAILS UP. CALL LIGHT WITHIN REACH. BED ALARM ON.
--- NOTE | 2022-05-22 10:24 | NUR ---
BED ALARM ON. PT HAS ANOTHER INCONTINANT EPISDOE. PT TRYING TO GET OUT OF BED. DEPENDS SATURATED. PT UP TO STAND, VERY WEAK AND UNSTEADY ON FEET. PT FALLS BACK TO BED X2. DEPENDS CHANGED. SHAWNA CARE DONE. PT PLACED BACK IN BED AND ENCOUARGED TO REST. CONDOM CATHETER PLACED TO PREVENT ADDITONAL INCONTINANCE AND PREVENT FALLS. CONDOM CATHETER EXPLAINED TO PT. PT UNABLE TO VERBALIZE UNDERSTANDING. CALL LIGHT WITHIN REACH. BED RAILS UP. BED ALARM ON.
--- NOTE | 2022-05-22 11:09 | NUR ---
PTS SIGNIFICANT OTHER, SANDRITA, ARRIVED TO BEDSIDE. SANDRITA UPDATED ON PT STATUS AND PLAN OF CARE. SANDRITA VERBALIZES UNDERSTANDING AND STATES HIS QUESTIONS HAVE BEEN ANSWERED. PT CONTINUES RESTING IN BED. CONDOM CATHER REMAINS IN PLACE. PT CONTINUES TO DENY NEED FOR PAIN MEDICATION. HEAD OF BED ELEVATED TO 30 DEGREES. BED RAILS UP. BED ALARM ON. CALL LIGHT WITHIN REACH.
--- NOTE | 2022-05-22 12:15 | NUR ---
BED ALARM SOUNDING. JOSIAS, RN TO BEDSIDE AND ASSISTS PT UP TO CHAIR. THIS RN TO ROOM AND REVIEWS CONCENRS WITH PTS SIGNIFICANT OTHER WITH HIM BEING UP TO THE CHAIR. SANDRITA, SIGNIFICANT OTHER AGREES TO WATCH PT CLOSELY AND NOT ALLOW PT TO GET OUT OF CHAIR WITHOUT NURSING STAFF. CHAIR ALARM ON. NEW CONDOM CATHETER PLACED. DEPEDNS SATURATED, SHAWNA CARE DONE, DEPENDS CHANGED. PT DENIES PAIN AT THIS TIME. NO ADDITIONAL NEEDS CALL LIGHT WITHIN REACH. SANDRITA AT BEDSIDE.
--- NOTE | 2022-05-22 13:02 | NUR ---
PT RESTLESS AND TRYING TO GET OUT OF CHAIR. THIS RN AND TERRY BARBOZA TO BEDSIDE, 2 PERSON ASSIST BACK TO BED. PT CONTINUES TO BE WEAK AND HAVE JERKING MOVEMENTS. PT ASSISTED INTO BED. CONDOM CATHETER IN PLACE AND WORKING WITH PT VOIDS. PT REPORTS "A LITTLE" PAIN TO "MY STOMACH." PT DECLINES PAIN MEDICATION. PT RESTING IN BED WITH HEAD OF BED ELEVATED TO 30 DEGREES. PT DENIES ADDITONAL REQUESTS OR COMPLAINTS. CALL LIGHT WITHIN REACH. PTS SIGNIFICANT OTHER AT BEDSIDE. BED RAILS UP. BED ALARM ON.
--- NOTE | 2022-05-22 13:39 | NUR ---
AFTERNOON ASSESSMENT AND MEDICAITON DUE. THIS RN TO ROOM. PT RESTING IN BED, AWAKE AND ALERT. PT ORIENTED TO SELF, PLACE AND REASON FOR HOSPITAL STAY. PT CONTINUES TO DISORIENTED TO EVENTS AND SURROUNDINGS. PT DENIES PAIN, EVEN WITH ABOMDINAL PALPATION. PT RESLESS IN BED, MUSCLE TWITCHES CONTINUE WITH JERKING MOVEMENTS. PT HAS TROUBLE KEEPING CUP UP TO MOUTH FOR DRINKING RELATE TO MUSCLE TWITCHES. PT ASSITED WITH TAKING MEDICATION ADN A FEW SIPS OWATER. PT DECLINES ADDTIONAL FOOD OR FLUID. PT CONTINEUS TO BE UNABLE TO TRACK PEN OR FINGER WITH HIS EYES. LUNG SOUDNS CLEAR. HEART TONES BOUDING WITH TONES HEARD IN ABDOMEN AND SEEN AT CAROTID ARTERY SITE. TACHYCARDIA NOTED WITH HR 100-110'S. PT DOES NOT ANSWER QUESTIONS ABOUT TINGLING OR MUSCLE CRAMPING. CONDOM CATHETER REMAINS IN PLACE. PT REMINDED TO PEE WHEN HE WANTS TO GO. NO PETECHIA NOTED, BRUISES UNCHANGED. PT DENIES ADDITONAL REQEUSTS OR COMPLAINTS. CALL LIGHT WITHIN REACH. BED RAILS UP. BED ALARM ON.
--- NOTE | 2022-05-22 14:25 | NUR ---
PATIENT IN BED AFTER BATHROOM CARES. VITALS AND I/O'S COMPLETED. NO OTHER NEEDS AT THIS TIME CALL LIGHT WITHIN REACH.
--- NOTE | 2022-05-22 15:00 | NUR ---
BED ALARM SOUNDING. PT UP OUT OF BED. KNITTED GARMENT FINISHER WITH PT AND HELPING PT SIT ON COMODE FOR SAFETY. CONDOM CATHETER REMAINS IN PLACE. PT DISORIENTED TO EVENTS AND PLACE. 2 PERSON ASSIST BACK TO BED. HEART RATE IN 120-130'S WITH OXGYEN SATURATIONS NOTED TO BE 90-93% ON ROOM AIR. PT REPORTS CHEST PAIN AND BACK PAIN, PT UNABLE TO CLARIFY PAINS. PT REQUESTS PAIN MEDICAITON, SEE MAR FOR MEDICATION GIVEN. DR. VASQUES UPDATED. NEW ORDERS PLACED FOR PTS TRANSFER TO CCU. REPORT GIVEN TO GAGE TONG IN CCU WHO STATES HER QUESTIONS HAVE BEEN ANSWERED. PT TRANSFERED TO CCU WITH ALL BELONGINGS. CALL PLACED TO [facility], PHONE NOT CONNECTED, NO ANSWER.
--- NOTE | 2022-05-22 16:50 | NUR ---
Report received from GAGE Cedillo from [place]. Patient arrived from CT at 1550 in bed. Patient placed on 2L oxygen due to 88% on RA. Chavira catheter placed, 2nd IV placed, fluids increased per orders from Dr. Blount. Patient is calm, cooperative, and allowing all cares. Affect is flat, but able to carry converstaion. Patient is slow to respond, and is not oriented to place, time, or situation. CXR and lab completed at bedside.
--- NOTE | 2022-05-22 18:11 | NUR ---
Patient has been calm and cooperative during shift and follows requests from staff as it relates to pulling at medical lines. Patient continues to have a poor appetite, but does eat the candy at his bedside. Curretnlyu still on 2L compared to the RA from the medical unit. Patient able to tell staff his needs when asked, but does not use call light at this time.
--- NOTE | 2022-05-22 19:37 | NUR ---
CALLED MANAGER VALIDATION TO REQUEST NEW ABX ORDERS THAT WILL NEED PREPARED. PT ALSO HAS SET OFF BED ALARM THREE TIMES DURING REPORT, HE IS NOT USING CALL LIGHT TO NOTIFY STAFF OF NEEDS.
--- NOTE | 2022-05-22 19:46 | NUR ---
TERRY GALLAGHER IN PT ROOM AT THIS TIME PT HAS BEEN IMPULSIVE, THIS IS FOR PT SAFETY.
--- NOTE | 2022-05-22 20:20 | NUR ---
TERRY GALLAGHER CALLED TRANSFER CENTER AT [facility] FOR UPDATE ON BED AVAILABLILITY, TRANSFER CENTER SAID NO BED AVAILABILITY YET CHECK BACK TOMORROW AFTERNOON.
--- NOTE | 2022-05-22 21:00 | NUR ---
PT ALERT TO PLACE AND SURROUNDINGS, HE IS VERY FORGETFUL OR UNINTERESTED IN HIS PLAN OF CARE. HE HAS BEEN IMPULSIVE, SETTING OFF BED ALARM TRYING TO CLIMB OUT OF BED, HE IS NOT ORIENTED TO PLACE OR TIME, HE IS NOT TRACKING EDUCATION OR INSTRUCTIONS AT BEDSIDE IN REGARDS TO HENDERSON CATHETER, IV LINES, OXYGEN OTHER MEDICAL EQUIPMENT.
--- NOTE | 2022-05-22 23:15 | NUR ---
UPDATED IN REGARDS TO UPDATE RECORD CHANGER TO TRANSFER CENTER AND PT MENTATION AND HEART RATE AT START OF SHIFT AND NOW. PT NOW TRACKING AND CONVERSING BETTER. VITALS IMPROVED.
--- NOTE | 2022-05-22 23:42 | NUR ---
PT REPORTS PAIN 2/10 GENERALIZED AND AT HIS ABD/BACK RASH. TYLENOL PRN ADMINISTERED WITH BITE OF PUDDING. PT MORE ALERT AT THIS TIME, HE IS MORE COOPERATIVE WITH CARE
--- NOTE | 2022-05-23 00:36 | NUR ---
PT REMOVED HIS OXYGEN N.C. HIS OXYGEN SATURATION DROPPED TO 86-87% ON ROOM AIR WHILE SLEEPING, PT PLACED BACK TO 2L OXYGEN SATURATION WHILE SLEEPING. PT ASKED IF HE HAS ANY NEEDS HE SAID "NO"
--- NOTE | 2022-05-23 00:51 | NUR ---
ABG WAS DRAWN ON LEFT RADIAL ARTERY WITH A NEGATIVE ALLENS TEST. PRESSURE HELD FOR 5 MINUTES UNTIL BLEEDING WAS NOT PRESENT ON 2X2. BANDAID APPLIED AND PER CURRENT WRITTEN PROTOCOL TAKEN TO THE LAB ON ICE. 0005 DID 3ML 10% HYPERTONIC SALINE NEBULIZER. PT DID NOT FOLLOW DIRECTIONS WELL AND WOULD NOT TAKE SLOW DEEP BREATHS ON NEBULIZER. PT TOOK OUT OF MOUTH IF NOT BEING DIRECTED. ATTEMPTED NEBULIZER WITH CORONET TO PROVOK SPUTUM. PT COULDNOT COOPERATE OR FOLLOW DIRECTIONS WELL WHEN INSTRUCTUD. PT DID COUGH WHEN INSTRUCTED TO DO SO BUT IS WAS A DRY NON PRODUCTIVE COUGH. NO SPUTUM COULD BE OBTAINED AT THIS TIME.
--- NOTE | 2022-05-23 00:55 | NUR ---
PT RESTING QUIETLY IN BED, EYES CLOSED RESP REGULAR 22 BPM. NO DISTRESS NOTED AT THIS TIME
--- NOTE | 2022-05-23 05:56 | NUR ---
ASSISTED MUCK MINER WITH BLOOD DRAW, PT COOPERATIVE, ALERT AND ORIENTED TO PLACE SURROUNDINGS, SELF AND STAFF. HE HAS NO REQUESTS OR CONCERNS, FRESH WATER, WHEN ASKED IF HE NEEDED ANYTHING HE SAID NO, HE ALSO DENIED PAIN THIS AM.
--- NOTE | 2022-05-23 06:32 | NUR ---
CALLED WITH CRITICAL VALUE RESULTS ALSO POTASSIUM AND MAG LABS LOW THIS AM, NEW ORDERS
--- NOTE | 2022-05-23 08:50 | NUR ---
BEAD WRAPPER AND MEDICATION GIVEN. PATIENT IS CALM AND COOPERATIVE THIS MORNING AND LESS AGGITATED AND RESTLESS COMPARED TO YESTERDAY. PATIENT RESPONDS MODERATLY AND DOES NOT ALWAYS ANSWER QUESTIONS OR CARRY CONVERSTAION. PATIENT ABLE TO TAKE MEDICATION WHEN PROMPTED. PATIENT STATES ABDOMEN IS TENDER, BUT DOES NOT WANT PAIN MEDICATION AT THIS TIME. PATIENT DENIES ANY FURTHER NEEDS. PERSONAL ITEMS AND CALL LIGHT WITHIN REACH. PATIENT EDUCATED ON PLATELET INFUSION, UNABLE TO SIGN CONSENT, BUT DID GIVE VERBAL CONSENT. THIS NURSE AND DR. VASQUES SIGNED FOR CONSENT TO GIVE PLATELETS.
--- NOTE | 2022-05-23 10:43 | NUR ---
Patient resting in bed, tv on, but not watching actively. Patient is able to converse more now and follow commands for taking medications. Patient is able to state when he needs more water to help medications go down which is am improvement from this morning and yesterday. Patient denies needs at this time. Currently waiting for platelets to be ready for transfusion. Personal items and call light within reach. Maintaining urine output >[address] Blount and adjusting all IV intake to max of 200/hour.
--- NOTE | 2022-05-23 12:12 | NUR ---
PATIENT'S PARTNER IN ROOM AT THIS TIME ENCOURAGING PO INTAKE. ENSURE, WATER, AND SNACKS AT BEDSIDE AND ENCOURAGED TO EAT/DRINK WITH EACH ENTRANCE INTO ROOM. PATIENT DENIES NEEDS AT THIS TIME. PERSONAL ITEMS AND CALL LIGHT WITHIN REACH. URINE OUTPUT REMAINS ABOVE 100 CC/HR PER DR. VASQEUS'S REQUEST. FLUIDS CONTINUE TO RUN AT A MAX OF 200 CC/HR.
--- NOTE | 2022-05-23 14:23 | NUR ---
Patient repositioned and cleaned. Patient starting to pick at medical lines, needing to remind and reifirce to leave lines alone. At this time, patient is manageable with leaving room curtain open with frequent observation. PRN pain medications give for abdominal pain. Personal items and call light within reach. Patient denies any further needs at this time.
--- NOTE | 2022-05-23 16:30 | NUR ---
FIRST UNIT OF PLATELETS STARTED, FOLLOWING VS PROTOCOL. PATIENT RESTING IN BED WATCHING TV. PATIENT IS MILDY RESTLESS, BUT STATES HIS PAIN IS UNDER CONTROL AND DOESN'T WANT ANY MEDICATION AT THIS TIME. PATIENT REPOSITIONED FOR COMFORT. PERSONAL ITEMS AND CALL LIGHT WITHIN REACH.
--- NOTE | 2022-05-23 18:27 | NUR ---
PATIENT HAS REMAINED STABLE THROUGHOUT SHIFT. ORAL INTAKE REMAINS VERY LOW DESPITE ENCOURAGEMENT WITH EACH INTERACTION. FIRST UNIT OF PLATELETS IN AND RUNNING SECOND UNIT NOW. CONTACTED [facility] THIS MORNING TO CONFIRM WAITING FOR BEDS, NOT FURTHER UPDATES AT THIS POINT. UPDATED [facility]AD, [facility] WHO MAY BEGIN CALLING OTHER FACILITIES FOR TRANFER OUT. PATIENT CONTINUES TO HAVE MOMENTS OF FORGETFULNESS, ANXIETY, AND RESTLESSNESS BUT COMES AROUND EASILY WITH REDIRECTION. PATIENT OCCASSIONALLY PULLS AT MEDICAL LINES, BUT AGAIN, IS REDIRECTABLE AND FOLLOW REQUESTS TO LEAVE LINES AT TIMES. VITAL SIGNS REMAIN STABLE THROUGHOUT SHIFT.
--- NOTE | 2022-05-23 23:34 | NUR ---
CALL TO [facility] FOR PATIENT TRANSPORT, [facility] WITH [facility] TO [facility] OUT FOR CREW AND WILL CALL BACK.
--- NOTE | 2022-05-23 23:34 | NUR ---
[facility], CALLED IMAGING ASKED TO HAVE IMAGES PUSHED TO [facility] AND HARD COPIES TO BE MADE FOR TRANSFER PACKET.
--- NOTE | 2022-05-23 23:48 | NUR ---
CALL FROM [facility] WITH [facility], UNABLE TO LOCATE A CREW, WILL BE ABLE TO TRANSPORT 0700 05/24/22.
--- NOTE | 2022-05-24 01:36 | NUR ---
ROUNDING ON PT, THIS RN HAS FORM FOR PT TO SIGN GIVING PERMISSION TO THIS FACILITY TO SEND ALL HEALTH IMFORMATION TO HOSPITAL HE IS TRANSFERING TO, THIS RN ASKED PT "WILL YOU GIVE THIS HOSPITAL PERMISSION TO SEND ALL YOUR HEALTH INFORMATION WE HAVE TO THE HOSPITAL YOU WILL BE TRANSFERING TO, THIS INCLUDES ALL LABS AND IMAGING?" PT SAID "YES" WHEN ASKED IF HE WOULD SIGN THE PAPER, HE DID NOT REACH FOR THE PEN HE CLOSED HIS EYES. PT ASKED AGAIN IF HE IS OK WITH HEALTH INFORMATION BEING SENT TO TRANSFERING HOSPITAL HE SAID "YEAH THATS OK" WILL WITNESS THE VERBAL CONSENT AND SIGN SUCH.
--- NOTE | 2022-05-24 02:44 | NUR ---
CALL TO [facility], SPOKE WITH THEODORE, ADVISED OF PATIENT PLANNED TRANSPORT TIME OF 0700.
--- NOTE | 2022-05-24 04:37 | NUR ---
PT CALLED [facility] TO REPORT THAT HIS IV PUMP IS ALARMING, NEW LITER OF NS HUNG FOR ADMINISTRATION. PT VERBALIZED NO OTHER NEEDS AT THIS TIME.
--- NOTE | 2022-05-24 05:54 | NUR ---
ATTEMPTED TO CALL LEIDA, PT'S SIGNIFICANT OTHER WITH PHONE NUMBER PROVIDED IN CHART, THE RECORDED MESSAGE THAT ANSWERED SAID "THE PERSON YOU HAVE CALLED CAN NOT EXCEPT CALLS AT THIS TIME, SORRY FOR THE INCONVENIENCE" THEN DIAL TONE. ATTEMPTED TWICE WITH PHONE ON SPEAKER FOR JULIO ALMONTE TO ALSO HEAR ATTEMPT TO CALL.
--- NOTE | 2022-05-24 06:11 | NUR ---
CALL TO [facility] AND SPOKE WITH CYNDI REGARDING PATIENT TRANSFER, CYNDI TO TONE OUT FOR CREW AND CALL BACK.
--- NOTE | 2022-05-24 06:18 | NUR ---
CALL RECEIVED FROM CYNDI [facility], WILL HAVE CREW IN AT 0800.
--- NOTE | 2022-05-24 06:43 | NUR ---
INTO PT ROOM, ROUNDED, I/O COMPLETE. PT ALERT AND ORIENTED, HE HAS NO REQUESTS, HE IS NOTIFIED THAT WAS UNABLE MAKE CONTACT WITH LEIDA. HE HAD NO OTHER REQUESTS.
--- NOTE | 2022-05-24 07:24 | NUR ---
UPDATED ON PT PLTS THIS AM AT NURSES STATION NO NEW ORDERS
--- NOTE | 2022-05-24 07:54 | NUR ---
PATIENT RESTING IN BED, VITALS AND I&OS CHARTED. DR SALDIVAR AT BEDSIDE THIS MORNING TO SPEAK WITH PATIENT. PATIENT SLIGHTLY CONFUSED, CALLING DR, "LEIDA" AND NOT ORIENTED TO PLACE/TOWN WHEN ASKED. PATIENT DID USE CALL LIGHT APPROPRIATELY, TOLD THIS SQL PROGRAMMER "I'M VERY SICK." PATIENT DID TAKE IN SEVERAL SIPS OF WATER, FACE AND HANDS WASHED, NEW GOWN PROVIDED. PERSONAL ITEMS LABELED AND WAITING FOR EMS TRANSFER.
--- NOTE | 2022-05-24 08:41 | NUR ---
REPORT GIVEN TO GAGE MORILLO AT [facility] IN [place], [place]. REPORT GIVEN TO [facility] FOR TRANSPORT ([facility]). PATIENT LEFT UNIT AT 0840.
== END 2022-05-24 08:40 | disposition short-term general hospital (02) | DRG 682 ==
LOC: ED 09:43 → MS 11:56 → CCU 05-22 15:50
PROVIDERS: ADMIT Internal Medicine; ATTEND Internal Medicine
PROC: 30233R1 Transfusion of Nonautologous Platelets into Peripheral Vein, Percutaneous Approach (ICD-10-PCS; principal; 2022-05-23)
DX: N17.9 Acute kidney failure, unspecified (principal); J18.9 Pneumonia, unspecified organism; G93.41 Metabolic encephalopathy; B59 Pneumocystosis; B20 Human immunodeficiency virus [HIV] disease; E87.1 Hypo-osmolality and hyponatremia; B01.9 Varicella without complication; D47.9 Neoplasm of uncertain behavior of lymphoid, hematopoietic and related tissue, unspecified; C34.32 Malignant neoplasm of lower lobe, left bronchus or lung; E83.52 Hypercalcemia; B02.9 Zoster without complications; D69.6 Thrombocytopenia, unspecified; R59.1 Generalized enlarged lymph nodes; R91.8 Other nonspecific abnormal finding of lung field; E86.0 Dehydration; B19.20 Unspecified viral hepatitis C without hepatic coma; I10 Essential (primary) hypertension; N18.32 Chronic kidney disease, stage 3b; G31.84 Mild cognitive impairment of uncertain or unknown etiology; Z87.442 Personal history of urinary calculi; Z90.49 Acquired absence of other specified parts of digestive tract; Z79.899 Other long term (current) drug therapy; Z79.891 Long term (current) use of opiate analgesic; Z91.14 Patient's other noncompliance with medication regimen; Z20.822 Contact with and (suspected) exposure to COVID-19
CPT/HCPCS: 36415; 36430; 70450; 71045; 80048; 80053; 81001; 82306; 82652; 82803; 83615; 83735; 83970; 85025; 85060; 86592; 86704; 86803; 86850; 86900; 86901; 87040; 87070; 87116; 87205; 87206; 87327; 87502; 94640; 96374; 96375; 99285-25; A9270; C9803; J0133; J0692; J0780; J1170; J1956; J2270; J2405; J3370; J3475; J3480; J3489; J7030; J7060; P9035; U0003